=== PATIENT | male | born 1960 | race Caucasian/White ===

== ENCOUNTER 2017-03-07 18:50 | Emergency (ER) | payer OTHER ==
[~2017-03-07] VITALS: Ht 172.7 cm; Wt 80.5 kg
[2017-03-07 18:56] VITALS: Ht 172.7 cm; Wt 80.5 kg
--- NOTE | 2017-03-07 21:16 | RADRPT ---
PROCEDURE: Ultrasound of the right lower extremity venous system. CLINICAL INDICATION: Right leg pain and swelling, deep venous thrombosis TECHNIQUE: Nesbitt scale with and without compression, color doppler, spectral doppler of the venous system of the right lower extremity was performed. Venous augmentation maneuvers were utilized. COMPARISON: No prior studies are available for comparison. FINDINGS: Common femoral vein: Patent. Femoral vein: Patent. Popliteal vein: Patent. Calf veins: Patent. No soft tissue abnormalities are identified. IMPRESSION: No evidence of a deep vein thrombosis within the right lower extremity. RPTAT: AADD .Todd Alston MD, MD Date Time Electronically viewed and signed by .Todd Alston MD, on 03/07/2017 21:15 .B/
--- NOTE | 2017-03-07 21:22 | RADRPT ---
PROCEDURE: CT PELVIS WITHOUT CONTRAST CLINICAL INDICATION: Right hip injury TECHNIQUE: CT scan of pelvis was performed on a multi -slice scanner. No IV contrast was administ ered. Coronal and sagittal reformatted images were obtained from the axial source images. The tota l exam DLP equals 248 mGy-cm. The CDTI volume was 8 mGy. Images were reviewed on a high-resolution [email or web address] workstation. One or more of the following dose reduction techniques were used: Automated exposure control Adjustment of the mA and/or kV according to patient size. Use of iterative reconstruction technique. COMPARISON: None. FINDINGS: There is no acute fracture or dislocation of both hips. A few small bone islands are visualized wit hin the left proximal femur. There is mild joint space narrowing with minimal osseous spurring galileo g the anterior and posterior aspect of both hips joints. No significant joint effusion is visualize d. The bilateral sacroiliac joints are intact with mild osseous spurring, joint space narrowing, subcho ndral sclerosis. The sacrum and coccyx are otherwise intact. The pubic symphysis is intact. The muscles around the pelvis and both hips are unremarkable. Mild atherosclerotic vascular calcifi cations are present. The prostate is slightly enlarged. There is no lymphadenopathy within the visualized pelvis. RPTAT: HTLT IMPRESSION: 1. No acute fracture or bony destructive changes. 2. Mild degenerative changes of both hips. 3. Mild degenerative changes of the bilateral sacroiliac joints. .Birgit Guaman MD, Date Time Electronically viewed and signed by .Birgit Guaman MD, MD on 03/07/2017 21:22 .T/
[2017-03-07] MEDS ORDERED: IBUP-1542 PO (21:57)
--- NOTE | 2017-03-08 00:04 | ERD ---
ER Documentation Chief Complaint Date/Time DATE: 03/07/17 TIME: 23:49 Chief Complaint s/p fall from stairs 1 week ago. c/o increased pain last two days HPI 57 year old male patient with no significant past medical history presents to the ED complaining of status post fall 1 week ago and actually tripped on one step. States that he landed on the right side of his hip. Reports that he was diagnosed with Guillain Gary Syndrome 2 years ago. States that he went to an urgent care and had a negative x-ray of the right hip. Denies any fever, chills , nausea, vomiting, weakness, numbness and tingling, dysuria, urgency, frequency , hematuria. ROS All systems reviewed and are negative except as per history of present illness. Medications Home Meds Active Scripts Ibuprofen* (Motrin*) 600 Mg Tab, 600 MG PO Q6, #30 TAB take with food Prov:SAYDA DEL TORO PA-C 03/07/17 Allergies Allergies: Coded Allergies: No Known Drug Allergy (Verified Allergy, Unknown, 03/07/17) PMhx/Soc History of Surgery: No Anesthesia Reaction: No Hx Neurological Disorder: No Hx Respiratory Disorders: No Hx Cardiac Disorders: No Hx Psychiatric Problems: No Hx Miscellaneous Medical Probl: Yes (DM, HIGH CHOLESTEROL ) Hx Alcohol Use: No Hx Substance Use: No Hx Tobacco Use: No Smoking Status: Never smoker Physical Exam Vitals Vital Signs Date Time Temp Pulse Resp B/P Pulse Ox O2 Delivery O2 Flow Rate FiO2 03/07/17 18:56 98.2 88 20 141/91 98 Physical Exam Const: [id number]-gvl-[id number], well-nourished. In no acute distress. Head: Atraumatic, normocephalic Eyes: Normal Conjunctiva without injection ENT: Normal external ear, nose and mouth. Neck: Full range of motion. No meningismus. Resp: Clear to auscultation bilaterally. No wheezing, rhonchi, rales, or crackles. No accessory muscle use. No retractions. Cardio: Regular rate and rhythm, no murmurs Skin: No petechiae or rashes Back: No midline tenderness. No CVA tenderness. Ext: No cyanosis, or edema. Cap refill less than 2 seconds. Distal pulses intact bilaterally. Tenderness palpation of the right hip. No erythema, edema. No deformities. Patient ambulating without difficulty. Full range of motion with flexion, extension of bilateral hips. Neur: Awake and alert. Normal gait and coordination. Muscle strength 5/5. Sensation intact bilaterally. Psych: Normal Mood and Affect Procedures/MDM 57-year-old male patient with a past medical history of type 2 diabetes, hypercholesterolemia, Guillain Gary Syndrome presents to the ED complaining of right hip and groin pain that started intermittently for [address] of the abdomen and pelvis and venous ultrasound of the right lower extremity was ordered to further evaluate patient. PROCEDURE: Ultrasound of the right lower extremity venous system. CLINICAL INDICATION: Right leg pain and swelling, deep venous thrombosis TECHNIQUE: Nesbitt scale with and without compression, color doppler, spectral doppler of the venous system of the right lower extremity was performed. Venous augmentation maneuvers were utilized. COMPARISON: No prior studies are available for comparison. FINDINGS: Common femoral vein: Patent. Femoral vein: Patent. Popliteal vein: Patent. Calf veins: Patent. No soft tissue abnormalities are identified. IMPRESSION: No evidence of a deep vein thrombosis within the right lower extremity. PROCEDURE: CT PELVIS WITHOUT CONTRAST CLINICAL INDICATION: Right hip injury TECHNIQUE: CT scan of pelvis was performed on a multi -slice scanner. No IV contrast was administered. Coronal and sagittal reformatted images were obtained from the axial source images. The total exam DLP equals 248 mGy-cm. The CDTI volume was 8 mGy. Images were reviewed on a high-resolution PACS workstation. One or more of the following dose reduction techniques were used: Automated exposure control Adjustment of the mA and/or kV according to patient size. Use of iterative reconstruction technique. COMPARISON: None. FINDINGS: There is no acute fracture or dislocation of both hips. A few small bone islands are visualized within the left proximal femur. There is mild joint space narrowing with minimal osseous spurring along the anterior and posterior aspect of both hips joints. No significant joint effusion is visualized. The bilateral sacroiliac joints are intact with mild osseous spurring, joint space narrowing, subchondral sclerosis. The sacrum and coccyx are otherwise intact. The pubic symphysis is intact. The muscles around the pelvis and both hips are unremarkable. Mild atherosclerotic vascular calcifications are present. The prostate is slightly enlarged. There is no lymphadenopathy within the visualized pelvis. RPTAT: HTLT IMPRESSION: 1. No acute fracture or bony destructive changes. 2. Mild degenerative changes of both hips. 3. Mild degenerative changes of the bilateral sacroiliac joints. Patient is ambulating without difficulty with his cane. Degenerative changes noted on her bilateral hips and bilateral sacroiliac joints. Patient's extremity symptoms have stabilized while they have been evaluated in the department and are appropriate for outpatient follow up. No evidence of fractures, dislocations, compartment syndrome, neurologic injury, vascular injury, open joint, open fracture, tendon laceration, septic arthritis, osteomyelitis, DVT, foreign body, or other emergent conditions. Discharge medications: Ibuprofen Follow up with primary care physician in 1-2 days for a referral to see an orthopedic physician. Instructed patient to return to the ED sooner for any worsening symptoms. Patient's questions were answered. Patient understood and agreed with discharge plan. Patient discharged stable. Departure Diagnosis: Primary Impression: Hip injury Encounter type: initial encounter Laterality: right Qualified Code: S79.911A - Hip injury, right, initial encounter Additional Impression: Calf pain Laterality: right Qualified Code: M79.661 - Right calf pain Condition: Stable Patient Instructions: Possible Causes of Low Back or Leg Pain, Hip Contusion Referrals: [facility] YOU HAVE RECEIVED A MEDICAL SCREENING EXAM AND THE RESULTS INDICATE THAT YOU DO NOT HAVE A CONDITION THAT REQUIRES URGENT TREATMENT IN THE EMERGENCY DEPARTMENT. FURTHER EVALUATION AND TREATMENT OF YOUR CONDITION CAN WAIT UNTIL YOU ARE SEEN IN YOUR DOCTORS OFFICE WITHIN THE NEXT 1-2 DAYS. IT IS YOUR RESPONSIBILITY TO MAKE AN APPOINTMENT FOR FOLOW-UP CARE. IF YOU HAVE A PRIMARY DOCTOR --you should call your primary doctor and schedule an appointment IF YOU DO NOT HAVE A PRIMARY DOCTOR YOU CAN CALL OUR PHYSICIAN REFERRAL HOTLINE AT IF YOU CAN NOT AFFORD TO SEE A PHYSICIAN YOU CAN CHOSE FROM THE FOLLOWING [facility] [address] [facility] [address] [facility] [address] [facility] [address] [facility] [facility] [address] [facility]. [facility]. [address] [facility]. [facility] YOU HAVE RECEIVED A MEDICAL SCREENING EXAM AND THE RESULTS INDICATE THAT YOU DO NOT HAVE A CONDITION THAT REQUIRES URGENT TREATMENT IN THE EMERGENCY DEPARTMENT. FURTHER EVALUATION AND TREATMENT OF YOUR CONDITION CAN WAIT UNTIL YOU ARE SEEN IN YOUR DOCTORS OFFICE WITHIN THE NEXT 1-2 DAYS. IT IS YOUR RESPONSIBILITY TO MAKE AN APPOINTMENT FOR FOLOW-UP CARE. IF YOU HAVE A PRIMARY DOCTOR --you should call your primary doctor and schedule and appointment IF YOU DO NOT HAVE A PRIMARY DOCTOR YOU CAN CALL OUR PHYSICIAN REFERRAL HOTLINE AT . IF YOU CAN NOT AFFORD TO SEE A PHYSICIAN YOU CAN CHOSE FROM THE FOLLOWING [facility] INSTITUTIONS: [facility] [address] [place] [address] [facility] [address] [place] [address] FOR[facility]LY [facility] + [facility] [address] [place] [address] [facility] URGENT CARE/SPECIALTIES Additional Instructions: FOLLOW UP WITH YOUR PRIMARY CARE PHYSICIAN TOMORROW.Return to this facility if you are not improving as expected. SAYDA DEL TORO PA-C Mar 08, 2017 00:01
== END 2017-03-07 22:07 | disposition home or self-care (01) ==
LOC: FTE 18:50
DX: S79.911A Unspecified injury of right hip, initial encounter (principal); S89.91XA Unspecified injury of right lower leg, initial encounter; E11.9 Type 2 diabetes mellitus without complications; W10.9XXA Fall (on) (from) unspecified stairs and steps, initial encounter; Y92.9 Unspecified place or not applicable
CPT/HCPCS: 72192; 93971